=== PATIENT | male | born 1960 | race Two or more races ===

== ENCOUNTER 2025-04-19 07:52 | Outpatient (RCR) | payer MEDICAID, SELFPAY | END 2025-04-29 23:59 | disposition home or self-care (01) | LOC: SCTC 07:52 | PROVIDERS: PCP Physician Assistant; Referring Provider Internal Medicine Hematology & Oncology; Visit Provider Internal Medicine Hematology & Oncology | DX: D72.820 Lymphocytosis (symptomatic) (principal); K64.9 Unspecified hemorrhoids; K62.5 Hemorrhage of anus and rectum | CPT/HCPCS: 99213; G0463 ==

== ENCOUNTER 2025-05-24 14:05 | Outpatient (RCR) | payer MEDICAID, SELFPAY | END 2025-05-29 23:59 | disposition home or self-care (01) | LOC: SCTC 14:05 | PROVIDERS: PCP Family Medicine; Referring Provider Family Medicine; Visit Provider Nurse Practitioner Family | DX: D72.820 Lymphocytosis (symptomatic) (principal); K62.5 Hemorrhage of anus and rectum; R74.8 Abnormal levels of other serum enzymes | CPT/HCPCS: 99212; G0463 ==

== ENCOUNTER → 2025-06-21 | Outpatient (CLI) | payer MEDICAID, SELFPAY ==
--- NOTE | 2025-06-21 11:30 | XR_ITS ---
Examination: Abdomen sonogram, complete Date and time of exam: June 21, 2025 1110 hours INDICATIONS: History lymphocytosis 4 months, family history liver cancer, sister. Technique: Multiple real-time grayscale transabdominal sonographic images of the abdomen have been obtained. Findings: Normal gallbladder Normal common bile duct 0.4 cm Pancreatic head 2.4 cm Aorta not enlarged. Liver 13.7 cm fatty infiltration no focal liver lesions Normal hepatopedal portal venous flow Patent IVC Right kidney 11.8 cm cortex 2.0 cm Left kidney 11.7 cm cortex 2.5 cm Spleen 9.4 cm IMPRESSION: Normal gallbladder Fatty infiltration throughout the liver no focal liver lesions
== END | disposition home or self-care (01) ==
PROVIDERS: PCP Nurse Practitioner Family; Referring Provider Nurse Practitioner Family; Visit Provider Nurse Practitioner Family
DX: K76.0 Fatty (change of) liver, not elsewhere classified (principal)
CPT/HCPCS: 76700

== ENCOUNTER 2025-07-12 13:53 | Outpatient (RCR) | payer MEDICAID, SELFPAY | END 2025-07-30 23:59 | disposition home or self-care (01) | LOC: SCTC 13:53 | PROVIDERS: PCP Physician Assistant; Referring Provider Nurse Practitioner Family; Visit Provider Nurse Practitioner Family | DX: D72.820 Lymphocytosis (symptomatic) (principal); K64.9 Unspecified hemorrhoids | CPT/HCPCS: 99212; G0463 ==

== ENCOUNTER 2025-08-15 14:17 | Outpatient (RCR) | payer MEDICAID, SELFPAY | END 2025-08-29 23:59 | disposition home or self-care (01) | LOC: SCTC 14:17 | PROVIDERS: PCP Physician Assistant; Referring Provider Physician Assistant; Visit Provider Nurse Practitioner Family | DX: D72.820 Lymphocytosis (symptomatic) (principal); D75.89 Other specified diseases of blood and blood-forming organs; K76.0 Fatty (change of) liver, not elsewhere classified; Z87.19 Personal history of other diseases of the digestive system | CPT/HCPCS: 99212; G0463 ==

== ENCOUNTER 2025-10-04 14:57 | Outpatient (RCR) | payer MEDICAID, SELFPAY | END 2025-10-29 23:59 | disposition home or self-care (01) | LOC: SCTC 14:57 | PROVIDERS: PCP Physician Assistant; Referring Provider Physician Assistant; Visit Provider Nurse Practitioner Family | DX: D75.89 Other specified diseases of blood and blood-forming organs (principal); K64.9 Unspecified hemorrhoids; K70.0 Alcoholic fatty liver | CPT/HCPCS: 99212; G0463 ==

== ENCOUNTER 2025-11-01 08:20 | Outpatient (CLI) | payer MEDICAID, SELFPAY ==
[2025-10-30 10:04] LABS: Basophils # (Auto) 0.0 Thou/mm3 (0.0-0.2); Basophils % (Auto) 0 % (0-2.5); Eosinophils # (Auto) 0.0 Thou/mm3 (0.0-0.5); Eosinophils % (Auto) 1 % (0-10); Hematocrit 46.0 % (41.0-53.0); Hemoglobin 16.0 g/dL (13.5-16.0); Immature Granulocytes Auto 0.01 Thou/mm3 (0.00-0.00); Lymphocytes # (Auto) 2.8 Thou/mm3 (1.0-4.8); Lymphocytes % (Auto) 41 % (10-50); Mean Corpuscular HGB Conc 34.8 g/dl (31.0-37.0); Mean Corpuscular Hemoglobin 33.4 pg (25.0-35.0); Mean Corpuscular Volume 96 fL (80-100); Monocytes # (Auto) 0.4 Thou/mm3 (0.0-0.8); Monocytes % (Auto) 6 % (0-12); Neutrophils # (Auto) 3.5 Thou/mm3 (1.8-7.7); Neutrophils % (Auto) 51 % (37-80); Nucleated Red Blood Cell # 0.00 Thou/mm3 (0.00-0.00); Nucleated Red Blood Cell % 0 /100 WBC (0); Platelet Count 218 Thou/mm3 (140-440); RDW Standard Deviation 41.6 fL (35.1-43.9); Red Blood Count 4.79 Miln/mm3 (4.50-5.90); White Blood Count 6.9 Thou/mm3 (3.8-10.6)
[2025-10-30 10:08] LABS: INR 1.0 (0.9-1.3); Partial Thromboplastin Time 26.4 Seconds (22.0-36.0); Prothrombin Time 10.3 Seconds (9.0-12.2)
[2025-10-30 10:13] LABS: Blood Urea Nitrogen 13 mg/dL (9-23); Creatinine (Component) 0.9 mg/dL (0.6-1.3); eGFR > 60 See Note
[2025-11-01] VITALS (10 sets, daily range): BP systolic 124–170; BP diastolic 79–97; PULSE 61–69; RESP 16–17; TEMP 36.4–36.5; O2SAT 91–99
--- NOTE | 2025-11-01 08:30 | XR_ITS ---
Examination: CT-guided percutaneous bone marrow aspiration left posterior superior iliac crest CT-guided percutaneous bone biopsy deep left posterior superior iliac crest CT pelvis without intravenous contrast Date and time of procedure: November 01, 2025, 10:21 a.m. INDICATIONS: Diagnosis lymphocytosis Informed consent provided. A timeout was completed verifying correct patient, procedure, site and positioning. . Technique: Axial 3 mm sections were obtained for localization of the left posterior superior iliac crest Appropriate area is marked. The patient's site was prepped and draped in sterile fashion Maximal sterile barrier technique utilized, including hand hygiene Local anesthesia was obtained with 1% lidocaine. Low dose protocols were performed. One or more of the following dose reduction techniques were used; automated exposure control, adjustment of the mA and/or KV according to patient size, use of iterative reconstruction technique. Utilizing CT fluoroscopic guidance 14-gauge bone biopsy needle placed in the left posterior superior iliac crest 5 cc marrow aspirate 5 cc bone core obtained and placed in preservative Patient appears in stable condition during this procedure. At completion of the procedure, the patient is in satisfactory condition. Estimated blood loss 0 cc Complete pathology report to follow. Impression: Successful CT-guided percutaneous bone marrow aspiration left posterior superior iliac crest Successful CT-guided percutaneous bone biopsy deep left posterior superior iliac (
[2025-11-01 10:25] LABS: Flow Cytometry* See Sep Rpt
[2025-11-01] MEDS: SODIUM CHLORIDE 0.9% 500 ML 500 ML 20 ML IV (10:37)
[2025-11-01] MEDS: fentaNYL CIT INJ 50 mCg/ML AMP 2ML 75 MCG IVP (10:39)
== END 2025-11-01 11:50 | disposition home or self-care (01) ==
LOC: SIRX 12:01
PROVIDERS: Radiology Diagnostic Radiology; PCP Nurse Practitioner Family; Referring Provider Nurse Practitioner Family; Visit Provider Nurse Practitioner Family
DX: D72.820 Lymphocytosis (symptomatic) (principal)
CPT/HCPCS: 20220; 36415; 77012; 82565; 84520; 85025; 85610; 85730; J3010; J7999

== ENCOUNTER 2025-11-08 14:53 | Outpatient (RCR) | payer MEDICAID, SELFPAY | END 2025-11-29 23:59 | disposition home or self-care (01) | LOC: SCTC 14:53 | PROVIDERS: PCP Physician Assistant; Referring Provider Nurse Practitioner Family; Visit Provider Nurse Practitioner Family | DX: Z09 Encounter for follow-up examination after completed treatment for conditions other than malignant neoplasm (principal); Z86.2 Personal history of diseases of the blood and blood-forming organs and certain disorders involving the immune mechanism; K70.0 Alcoholic fatty liver | CPT/HCPCS: 99212; G0463 ==